=== PATIENT | male | born 1955 | race Caucasian/White ===

== ENCOUNTER 2017-12-18 00:58 | Outpatient (CLI) | payer OTHER, SELFPAY ==
--- NOTE | 2017-12-18 13:35 | DI.RAD_ITS ---
SYMPTOMS/DIAGNOSIS: CHECK STONE SIZE, N20.0, CALCIUM STONE, CALCULUS OF KIDNEY KUB: Comparison is made with November,. An 8 mm stone is again noted at the upper pole of the left kidney. It does not appear significantly changed from the previous exam. No additional urinary tract calculi are seen. There is an increased quantity of stool. There is no bowel dilatation. IMPRESSION: No change in 8 mm calcification at the upper pole of the left kidney.
== END 2017-12-18 01:18 ==
PROVIDERS: PCP Emergency Medicine; Visit Provider Urology
DX: N20.0 Calculus of kidney (principal)
CPT/HCPCS: 74018

== ENCOUNTER 2019-01-14 14:04 | Outpatient (CLI) | payer OTHER, SELFPAY ==
--- NOTE | 2019-01-14 13:30 | DI.RAD_ITS ---
EXAM: XR ABDOMEN FLAT PLATE INDICATION: monitor known stone,calculus of kidney,n20.0. COMPARISON: ABD/PELVIS WO W CONTRAST from 03/18/2016 RETROGRADE IN OR from 06/05/2016 XR ABDOMEN FLAT PLATE from 12/18/2017 TECHNIQUE: 2D digital imaging was performed. FINDINGS: An 8 millimeter calcification again projects at the upper pole of left kidney. The stool partially o bscures the left kidney. No additional urinary tract calculi are seen. IMPRESSION: No change in 8 millimeter stone near the upper pole of the left kidney.
== END 2019-01-14 14:24 ==
PROVIDERS: PCP Emergency Medicine; Visit Provider Urology
DX: N20.0 Calculus of kidney (principal)
CPT/HCPCS: 74018

== ENCOUNTER 2019-03-18 07:00 | Outpatient (CLI) | payer OTHER, SELFPAY ==
[2019-03-18 13:33] LABS: Anion Gap 4.4 mmol/L (3-11); BUN 21 mg/dL (7-18); CO2 31.6 mmol/L (21.0-32.0); CREATININE 0.84 mg/dL (0.70-1.30); Calcium 8.8 mg/dL (8.5-10.1); Calculated LDL 116 mg/dL; Chloride 105 mmol/L (98-107); Cholesterol 195 mg/dL (<200); Glucose 89 mg/dL (74-106); HDL Cholesterol 73 mg/dL (40-60); Potassium 4.5 mmol/L (3.5-5.1); Sodium 141 mmol/L (136-145); Triglyceride 32 mg/dL (<150)
[2019-03-21 10:42] LABS: PSA, Screening 0.5 ng/mL (0.0-4.5)
== END 2019-03-18 07:20 ==
PROVIDERS: PCP Emergency Medicine; Visit Provider Emergency Medicine
DX: Z00.00 Encounter for general adult medical examination without abnormal findings (principal); I10 Essential (primary) hypertension; Z12.5 Encounter for screening for malignant neoplasm of prostate
CPT/HCPCS: 36415; 80048; 80061; 84153

== ENCOUNTER 2019-10-07 11:21 | Outpatient (CLI) | payer OTHER, SELFPAY ==
--- NOTE | 2019-10-07 10:45 | DI.RAD_ITS ---
EXAM: XR FOOT LT COMPLETE CLINICAL HISTORY: pain. TECHNIQUE: 2D digital imaging was performed. COMPARISON: No exams were available for comparison FINDINGS: BONES: No acute fracture is present. No bony destructive lesion is seen. There is some spur spurrin g at the posterior calcaneus. Tiny plantar calcaneal spur is present. Plantar arch is well maintain ed. JOINTS: No dislocation present. SOFT TISSUE: Normal. IMPRESSION: Small heel spurs. DATA REPOSITORY: RADIATION DOSE DELIVERED:
--- NOTE | 2019-10-07 10:45 | DI.RAD_ITS ---
EXAM: XR KNEE RT 4V AP,LAT,SUKUMAR,PAT CLINICAL HISTORY: pain. TECHNIQUE: 2D digital imaging was performed. COMPARISON: CR XR KNEE LT 4V AP,LAT,SUKUMAR,PAT from 10/07/2019 FINDINGS: BONES: No acute fracture is present. No bony destructive lesion is seen. JOINTS: The knee is normally aligned. No joint effusion is seen. There may be slight narrowing of the medial femoral tibial joint space. There is minimal spurring at the articular aspect of the patella. SOFT TISSUE: Normal. IMPRESSION: Mild degenerative changes.. DATA REPOSITORY: RADIATION DOSE DELIVERED:
--- NOTE | 2019-10-07 10:45 | DI.RAD_ITS ---
EXAM: XR KNEE LT 4V AP,LAT,SUKUMAR,PAT CLINICAL HISTORY: pain. TECHNIQUE: 2D digital imaging was performed. COMPARISON: No exams were available for comparison FINDINGS: BONES: No acute fracture is present. No bony destructive lesion is seen. There is mild spurring at t he inferior pole of the patella, at the patellar tendon. There is minimal spurring at the articular aspect of the patella. JOINTS: The knee is normally aligned. No joint effusion is seen. The joint spaces are well maintain ed. SOFT TISSUE: Normal. IMPRESSION: Mild degenerative changes. DATA REPOSITORY: RADIATION DOSE DELIVERED:
== END 2019-10-07 11:41 ==
PROVIDERS: PCP Emergency Medicine; Referring Provider Emergency Medicine; Visit Provider Physician Assistant Surgical
DX: M17.0 Bilateral primary osteoarthritis of knee (principal); M77.32 Calcaneal spur, left foot
CPT/HCPCS: 73564; 73630

== ENCOUNTER 2020-01-09 02:15 | Outpatient (CLI) | payer OTHER, SELFPAY ==
--- NOTE | 2020-01-09 08:15 | DI.RAD_ITS ---
EXAM: 2D digital imaging was performed. CLINICAL HISTORY: monitor left upper pole stone,LT RENAL CALCULUS,N20.0. COMPARISON: CT ABD/PELVIS WO W CONTRAST from 03/18/2016 CR XR ABDOMEN FLAT PLATE from 01/14/2019 CR XR ABDOMEN FLAT PLATE from 01/14/2019 TECHNIQUE: Supine views of the abdomen performed. FINDINGS: BOWEL GAS PATTERN: Nondistended. Large amount of stool is seen in the colon. CALCIFICATIONS: No change in size of the calcification in the upper pole of the left kidney. No othe r urinary tract calculi are identified. OSSEOUS STRUCTURES: Normal for age. OTHER FINDINGS: None. IMPRESSION: 1. Nonobstructive bowel gas pattern. 2. Stable left nephrolithiasis. DATA REPOSITORY: RADIATION DOSE DELIVERED:
== END 2020-01-09 02:35 ==
PROVIDERS: PCP Emergency Medicine; Visit Provider Urology
DX: N20.0 Calculus of kidney (principal)
CPT/HCPCS: 74018

== ENCOUNTER 2020-03-29 | Outpatient (CLI) | payer OTHER, SELFPAY ==
--- NOTE | 2020-03-29 15:00 | DI.RAD_ITS ---
EXAM: XR SHOULDER LT COMPLETE 2+V CLINICAL HISTORY: L shoulder injury. TECHNIQUE: 2D digital imaging was performed. COMPARISON: No exams were available for comparison FINDINGS: BONES: No acute fracture is present. No bony destructive lesion is seen. JOINTS: No dislocation present. SOFT TISSUE: Normal. IMPRESSION: Unremarkable radiographs of the left shoulder. DATA REPOSITORY: RADIATION DOSE DELIVERED:
== END 2020-03-29 00:20 ==
PROVIDERS: PCP Emergency Medicine; Referring Provider Emergency Medicine; Visit Provider Physician Assistant
DX: M25.512 Pain in left shoulder (principal)
CPT/HCPCS: 73030

== ENCOUNTER 2021-04-18 15:31 | Outpatient (CLI) | payer OTHER, SELFPAY ==
--- NOTE | 2021-04-18 14:30 | DI.RAD_ITS ---
Exam(s) XR HIP RT COMPLETE AP PELVIS EXAM: XR HIP RT COMPLETE AP PELVIS CLINICAL HISTORY: right hip pain, arthralgia of hip, M25.559. TECHNIQUE: 2D digital imaging was performed. COMPARISON: CR XR ABDOMEN FLAT PLATE from 01/09/2020 FINDINGS: No evidence of pelvic nor hip fracture. 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 Similar findings are not seen in the opposite-left hip IMPRESSION: Advanced degenerative changes in the right hip. DATA REPOSITORY: RADIATION DOSE DELIVERED:
== END 2021-04-18 15:51 ==
PROVIDERS: PCP Emergency Medicine; Visit Provider Emergency Medicine
DX: M25.551 Pain in right hip (principal); M16.11 Unilateral primary osteoarthritis, right hip
CPT/HCPCS: 73502

== ENCOUNTER → 2021-08-16 00:33 | Outpatient (CLI) | payer OTHER, SELFPAY ==
--- NOTE | 2021-08-16 06:45 | DI.RAD_ITS ---
Exam(s) XR ABDOMEN FLAT PLATE EXAM: 2D digital imaging was performed. CLINICAL HISTORY: calculus lt kidney,monitoring of kidney stone,n20.0. COMPARISON: CT ABD/PELVIS WO W CONTRAST from 03/18/2016 CR XR ABDOMEN FLAT PLATE from 01/09/2020 TECHNIQUE: Supine views of the abdomen performed. Two views were obtained. FINDINGS: BOWEL GAS PATTERN: There is a moderate amount of stool in the colon. No evidence of obstruction. CALCIFICATIONS: The calcification in the left upper quadrant of the abdomen is stable. Comparison to the CT shows that this lies in the superior aspect of the left kidney. OSSEOUS STRUCTURES: Marked degenerative changes are seen in the right hip. OTHER FINDINGS: None. IMPRESSION: 1. Nonobstructive bowel gas pattern. 2. Stable left nephrolithiasis. DATA REPOSITORY: RADIATION DOSE DELIVERED:
== END ==
PROVIDERS: PCP Family Medicine; Visit Provider Urology
DX: N20.0 Calculus of kidney (principal)
CPT/HCPCS: 74018

== ENCOUNTER 2021-12-06 09:03 | Outpatient (CLI) | payer OTHER, SELFPAY ==
--- NOTE | 2021-12-06 09:00 | RT.EKG_ITS ---
APPROVED REPORT Exam: Resting ECG Reason for Exam: pre-op evaluation Patient Location: O HR:52 bpm ECG Measurements Heart Rate 52 AXIS IL 166 P 63 QRSd 101 QRS 67 QT 421 T 11 QTc 392 Conclusion Sinus rhythm...normal P axis, V-rate 50- 99 Normal Electrocardiogram
== END 2021-12-06 09:04 | disposition home or self-care (01) ==
LOC: DI.CM 09:03
PROVIDERS: PCP Family Medicine; Visit Provider Family Medicine
DX: Z01.818 Encounter for other preprocedural examination (principal)
CPT/HCPCS: 93010

== ENCOUNTER 2022-04-23 14:09 | Outpatient (CLI) | payer OTHER, SELFPAY ==
--- NOTE | 2022-04-23 12:00 | DI.RAD_ITS ---
Exam(s) XR WRIST LT COMPLETE EXAM: XR WRIST LT COMPLETE CLINICAL HISTORY: left wrist pain - chronic M25.532 PAIN LT WRIST. TECHNIQUE: 2D digital imaging was performed. Three views. COMPARISON: No exams were available for comparison FINDINGS: BONES: No acute fracture is present. Old nonunited ulnar styloid fracture. No bony destructive lesi on is seen. JOINTS: The carpal bones are normally aligned. Mild widening of the distal radial ulnar joint, like ly chronic finding. Minimal degenerative changes in the carpal region. SOFT TISSUE: Normal. IMPRESSION: Old lung large styloid fracture. No acute abnormality. DATA REPOSITORY: RADIATION DOSE DELIVERED:
== END 2022-04-23 14:29 ==
PROVIDERS: PCP Family Medicine; Visit Provider Family Medicine
DX: M25.532 Pain in left wrist (principal); M19.032 Primary osteoarthritis, left wrist
CPT/HCPCS: 73110

== ENCOUNTER 2022-10-10 00:42 | Outpatient (CLI) | payer OTHER, SELFPAY ==
--- NOTE | 2022-10-10 07:49 | DI.RAD_ITS ---
Exam(s) XR ABDOMEN FLAT PLATE EXAM: XR ABDOMEN FLAT PLATE CLINICAL HISTORY: monitor known stone, calculus lt kidney, N20.0. TECHNIQUE: 2D digital imaging was performed. COMPARISON: CR XR ABDOMEN FLAT PLATE from 08/16/2021 FINDINGS: AP supine view the abdomen reveals interval placement right hip prosthesis. Visualized lung bases ar e clear. The bowel gas pattern is nonspecific in the supine position. The previously described calc ulus in the upper pole region of the left kidney is unchanged in size and position. No additional ra diopaque calculi evident IMPRESSION: Unchanged size and location of the left kidney calculus. DATA REPOSITORY: RADIATION DOSE DELIVERED:
== END 2022-10-10 01:02 ==
LOC: DI 00:42
PROVIDERS: PCP Family Medicine; Visit Provider Urology
DX: N20.0 Calculus of kidney (principal)
CPT/HCPCS: 74018

== ENCOUNTER → 2023-10-09 00:20 | Outpatient (CLI) | payer OTHER, SELFPAY ==
--- NOTE | 2023-10-09 09:36 | DI.RAD_ITS ---
Exam(s) XR ABDOMEN FLAT PLATE EXAM: 2D digital imaging was performed. CLINICAL HISTORY: monitor known stone, CALCULUS LT KIDNEY, N20.0. COMPARISON: CR XR ABDOMEN FLAT PLATE from 10/10/2022 CR XR LUMBAR SPINE COMP W FLEX/EX from 10/09/2023 TECHNIQUE: Supine views of the abdomen performed. FINDINGS: BOWEL GAS PATTERN: Nondistended. No organomegaly. CALCIFICATIONS: Stable size and position of the previously noted calculus at the upper pole of the le ft kidney. No additional calculi are visible. OSSEOUS STRUCTURES: Right hip prosthesis. OTHER FINDINGS: Lung bases are clear. Heart size is normal. IMPRESSION: 1. Nonobstructive bowel gas pattern. 2. 9 millimeter stone upper pole left kidney. DATA REPOSITORY: RADIATION DOSE DELIVERED:
== END ==
PROVIDERS: PCP Family Medicine; Visit Provider Urology
DX: N20.0 Calculus of kidney (principal); M51.36 Other intervertebral disc degeneration, lumbar region
CPT/HCPCS: 74018

== ENCOUNTER → 2023-10-09 00:52 | Outpatient (CLI) | payer OTHER, SELFPAY ==
--- NOTE | 2023-10-09 09:36 | DI.RAD_ITS ---
Exam(s) XR LUMBAR SPINE COMP W FLEX/EX EXAM: XR LUMBAR SPINE COMP W FLEX/EX CLINICAL HISTORY: chronic left sided lumbar pain, M54.50, G89.29 CHRONIC PAIN. TECHNIQUE: 2D digital imaging was performed of the lumbar spine. Seven images were obtained. AP, l ateral, right oblique, left oblique, flexion, extension and L5-S1 spot views were obtained. COMPARISON: CT ABD/PELVIS WO W CONTRAST from 03/18/2016 CR XR ABDOMEN FLAT PLATE from 08/16/2021 CR XR ABDOMEN FLAT PLATE from 10/10/2022 FINDINGS: BONES: No fracture or destructive lesion. There are endplate osteophytes seen at T12-L1 and L1-L2. Th e facet joints are well maintained. DISKS: There is disc space narrowing at T12-L1 and L1-L2. ALIGNMENT: Lumbar spinal alignment is within normal limits. No spondylolysis or spondylolisthesis. T here is no significant subluxation with flexion or extension. SOFT TISSUE: Normal. IMPRESSION: Mild degenerative changes seen in the lumbar spine as described above. DATA REPOSITORY: RADIATION DOSE DELIVERED:
== END ==
PROVIDERS: PCP Family Medicine; Visit Provider Family Medicine
DX: M54.50 Low back pain, unspecified (principal); G89.29 Other chronic pain; M51.35 Other intervertebral disc degeneration, thoracolumbar region; N20.0 Calculus of kidney
CPT/HCPCS: 72114

== ENCOUNTER 2024-04-08 09:08 | Outpatient (CLI) | payer OTHER, SELFPAY ==
[2024-04-08 09:20] LABS: Anion Gap 6.6 mmol/L (3-11); BUN 18 mg/dL (7-18); CO2 30.4 mmol/L (21.0-32.0); Calcium 8.8 mg/dL (8.5-10.1); Calculated LDL 134 mg/dL (<100); Chloride 106 mmol/L (98-107); Cholesterol 225 mg/dL (<200); Estimated GFR 83.01 (mL/min/1.73m2); Glucose 107 mg/dL (74-106); HDL Cholesterol 85 mg/dL (40-60); Potassium 4.1 mmol/L (3.5-5.1); Sodium 143 mmol/L (136-145); Triglyceride 32 mg/dL (<150)
== END 2024-04-08 09:09 | disposition home or self-care (01) ==
LOC: LBO 09:09
PROVIDERS: Urology; PCP Family Medicine; Visit Provider Family Medicine
DX: R39.9 Unspecified symptoms and signs involving the genitourinary system (principal); Z13.6 Encounter for screening for cardiovascular disorders; Z13.1 Encounter for screening for diabetes mellitus
CPT/HCPCS: 36415; 80048; 80061; 84153

== ENCOUNTER 2024-07-26 11:20 | Outpatient (CLI) | payer OTHER, SELFPAY ==
--- NOTE | 2024-07-26 10:45 | DI.RAD_ITS ---
Exam(s) XR SHOULDER RT COMPLETE 2+V EXAM: XR SHOULDER RT COMPLETE 2+V CLINICAL HISTORY: RIGHT SHOULDER PAIN. TECHNIQUE: 2D digital imaging was performed of the right shoulder. Two images were obtained. Axill jayashree and Grashey views were obtained. COMPARISON: There are no priors for comparison. FINDINGS: BONES: No acute fracture is present. No bony destructive lesion is seen. JOINTS: No dislocation present. The glenohumeral and acromioclavicular joints are well maintained. S ubchondral cysts are seen in the greater tuberosity. SOFT TISSUE: Normal. IMPRESSION: No acute abnormality. DATA REPOSITORY: RADIATION DOSE DELIVERED:
== END 2024-07-26 11:21 | disposition home or self-care (01) ==
LOC: DIORS 11:20
PROVIDERS: PCP Family Medicine; Referring Provider Family Medicine; Visit Provider Student in an Organized Health Care Education/Training Program
DX: M25.511 Pain in right shoulder (principal); M75.101 Unspecified rotator cuff tear or rupture of right shoulder, not specified as traumatic; V00.321A Fall from snow-skis, initial encounter; Y93.23 Activity, snow (alpine) (downhill) skiing, snowboarding, sledding, tobogganing and snow tubing
CPT/HCPCS: 73030

== ENCOUNTER 2024-08-17 01:59 | Outpatient (CLI) | payer OTHER, SELFPAY ==
--- NOTE | 2024-08-17 08:00 | DI.MRI_ITS ---
Exam(s) MR UPPER JOINT RT WO EXAM: MR UPPER JOINT RT WO CLINICAL HISTORY: R SHOULDER PAIN,RT ROTATOR CUFF TEAR,M75.101. TECHNIQUE: Multiplanar multisequence MRI was performed. COMPARISON: MR MRI R UPPER JOINT WO CONT from 05/09/2009 CR XR SHOULDER RT COMPLETE 2+V from 07/26/2024 FINDINGS: BONES: There is no fracture or contusion pattern. Small subchondral cysts are seen in the lateral asp ect of the humeral head. JOINTS: The acromioclavicular joint is well maintained. The glenohumeral joint is normal. No joint e ffusion. TENDONS: Supraspinatus: There appears to be a full-thickness tear of the supraspinatus tendon anteriorly at it s insertion site. There is underlying tendinosis of the supraspinatus tendon. Infraspinatus: Unremarkable. Subscapularis: There is tendinosis of the subscapularis tendon. Teres Minor: Unremarkable. Biceps and [place]: There is tendinosis of the long head of the biceps tendon. MUSCLES: Unremarkable. No fatty atrophy is present. GLENOID LABRUM: Unremarkable on this noncontrast examination. SOFT TISSUES: Unremarkable. LIGAMENTS: Unremarkable. OTHER: There is some fluid seen in the subacromial subdeltoid bursa. IMPRESSION: 1. There is a full-thickness tear of the supraspinatus tendon anteriorly at its insertion site. 2. Tendinosis of the supraspinatus, long head of the biceps and subscapularis tendons. 3. Subchondral cysts seen in the head of the humerus. 4. Small amount of fluid in the subacromial subdeltoid bursa consistent with a supraspinatus tendon t ear. DATA REPOSITORY:
== END 2024-08-17 02:19 ==
LOC: DI 01:59
PROVIDERS: PCP Family Medicine; Visit Provider Student in an Organized Health Care Education/Training Program
DX: M75.121 Complete rotator cuff tear or rupture of right shoulder, not specified as traumatic (principal)
CPT/HCPCS: 73221

== ENCOUNTER 2024-10-07 00:21 | Outpatient (CLI) | payer OTHER, SELFPAY ==
--- NOTE | 2024-10-07 09:09 | DI.RAD_ITS ---
Exam(s) XR ABDOMEN FLAT PLATE EXAM: XR ABDOMEN FLAT PLATE CLINICAL HISTORY: monitor known stone, CALCULUS OF LT KIDNEY, N20.0. TECHNIQUE: 2D digital imaging was performed. COMPARISON: CR XR ABDOMEN FLAT PLATE from 10/09/2023 FINDINGS: Single AP supine view of the abdomen and pelvis, compared to 1 year ago. Bowel gas pattern is nonspecific in the supine position. Right hip prosthesis is again noted. Previously described calculus in the region of the upper pole of the left kidney is again noted, unchanged in size and position. There may be a few smaller calculi in the same region. The lower aspect of the left kidney is obscured by fecal material in the distal transverse colon. There are no radiopaque calculi seen over the opposite-right kidney. No calculi seen along the course of the ureters. IMPRESSION: Findings similar to 1 year ago. DATA REPOSITORY: RADIATION DOSE DELIVERED:
== END 2024-10-07 00:41 ==
PROVIDERS: PCP Family Medicine; Visit Provider Urology
DX: N20.0 Calculus of kidney (principal)
CPT/HCPCS: 74018